=== PATIENT | female | born 1995 | race Caucasian/White ===

== ENCOUNTER 2024-05-27 18:32 | Emergency (ER) | payer OTHER ==
[~2024-05-27] VITALS: Ht 170.2 cm; Wt 68.0 kg
[2024-05-27 18:42] VITALS: BP 105/68; TEMP 98.3; O2SAT 100
[2024-05-27] MEDS: FLUTICASONE PROPIONATE 16 GM BOTTLE NS STA (18:55)
[2024-05-27] MEDS: METOCLOPRAMIDE HCL 10 MG/2 ML VIAL IV ONE (19:00)
[2024-05-27] MEDS: KETOROLAC TROMETHAMINE INJ 30 MG/ML VIAL IV ONE (19:00)
[2024-05-27] MEDS: IV NS 0.9% 1,000 ML BAG IV ONE (19:17)
[2024-05-27] MEDS ORDERED: SUMATRIPTAN SUCCINATE 6 MG/0.5 ML VIAL SQ ONE (19:20)
[2024-05-27] MEDS ORDERED: KETOROLAC TROMETHAMINE INJ 30 MG/ML VIAL ONE (19:20)
[2024-05-27] MEDS ORDERED: METOCLOPRAMIDE HCL 10 MG/2 ML VIAL ONE (19:20)
[2024-05-27] MEDS: SUMATRIPTAN SUCCINATE 6 MG/0.5 ML VIAL SQ ONE (19:28)
[2024-05-27] MEDS ORDERED: KETO10TA2 PO (20:12)
[2024-05-27] MEDS ORDERED: METO5TAB87 PO (20:12)
[2024-05-27] MEDS ORDERED: FLUT16SP16 BNOSTRILS (20:12)
[2024-05-27] MEDS ORDERED: SUMA100T PO (20:12)
== END 2024-05-27 20:26 | disposition home or self-care (01) ==
LOC: ER 18:32
DX: R51.9 Headache, unspecified (principal); F07.81 Postconcussional syndrome
CPT/HCPCS: 99284; 96374; 96361; 96375; 96372; J3030; J2765; J1885; J7030

== ENCOUNTER 2024-06-30 08:51 | Emergency (ER) | payer OTHER ==
[~2024-06-30] VITALS: Ht 170.2 cm; Wt 66.2 kg
[~2024-06-30 08:51] MED LIST: FLUT16SP16 BNOSTRILS; KETO10TA2 PO; METO5TAB87 PO; SUMA100T PO
[2024-06-30 09:02] VITALS: TEMP 98
[2024-06-30 09:32] LABS: BASOPHILS % (AUTO) 0.5 % (0.0-2.0); EOSINOPHILS # (AUTO) 0.1 K/uL (0.0-0.7); EOSINOPHILS % (AUTO) 1.9 % (0.0-6.0); HEMATOCRIT 39 % (33-45); HEMOGLOBIN 12.8 g/dL (11.5-14.8); LYMPHOCYTES # (AUTO) 1.6 K/uL (0.8-4.8); LYMPHOCYTES % (AUTO) 27.8 % (20.0-44.0); MEAN CORPUSCULAR HEMOGLOBIN 30 PG (26.0-33.0); MEAN CORPUSCULAR HGB CONC 33 g/dl (31.0-36.0); MEAN CORPUSCULAR VOLUME 92 fL (82-100); MONOCYTES # (AUTO) 0.4 K/uL (0.1-1.30); MONOCYTES % (AUTO) 6.2 % (2.0-12.0); NEUTROPHILS # (AUTO) 3.7 K/uL (1.8-8.9); NEUTROPHILS % (AUTO) 63.6 % (43.0-81.0); PLATELET COUNT (AUTO) 195 K/uL (150-450); RED BLOOD CELL COUNT(AUTO) 4.22 MIL/uL (4.0-5.2); RED CELL DISTRIBUTION WIDTH 13.5 % (11.5-15.0); WHITE BLOOD COUNT (AUTO) 5.9 K/uL (4.3-11.0)
[2024-06-30 09:41] LABS: CALCIUM, SERUM 8.8 mg/dL (8.5-10.1); CARBON DIOXIDE 24 mmol/L (21-32); CHLORIDE 110 mmol/L (98-107); CREATININE 0.8 mg/dL (0.6-1.3); GLUCOSE 95 mg/dL (74-106); SODIUM SERUM 142 mmol/L (136-145); UREA NITROGEN, BLOOD 17 mg/dL (7-18)
[2024-06-30 10:59] LABS: ALBUMIN 3.9 g/dL (3.4-5.0); BILIRUBIN,DIRECT 0.1 mg/dL (0.0-0.2); BILIRUBIN,TOTAL 0.4 mg/dL (0.2-1.0)
[2024-06-30 12:00] VITALS: BP 115/60; O2SAT 99
== END 2024-06-30 11:58 | disposition home or self-care (01) ==
LOC: ER 08:56
DX: R07.9 Chest pain, unspecified (principal)
CPT/HCPCS: 36415; 71045-TC; 80048-TC; 80076-TC; 83690-TC; 84443-TC; 84484-TC; 85025-TC